=== PATIENT | female | born 1965 | race American Indian/Alaskan Native ===

== ENCOUNTER 2020-03-13 16:41 | Inpatient (IN) | payer OTHER ==
[2020-03-13 17:30] LABS: Basophils % (Auto) 0.4 % (0.0-1.8); Eosinophils % (Auto) 0.1 % (0.0-4.3); Hemoglobin 15.8 gm/dl (10.1-14.3); Lymphocytes # (Auto) 3.3 K/mm3 (1.2-5.4); Lymphocytes % (Auto) 30.2 % (13.4-35.0); Mean Corpuscular HGB Conc 35 % (30-34); Mean Corpuscular Volume 78 fl (79-97); Monocytes # (Auto) 0.6 K/mm3 (0.0-0.8); Monocytes % (Auto) 5.2 % (0.0-7.3); Platelet Count 258 K/mm3 (140-440); Red Blood Count 5.89 M/mm3 (3.65-5.03); Red Cell Distribution Width 12.9 % (13.2-15.2)
[2020-03-13 17:32] LABS: Bacteria,Urine 1+ /HPF (Negative); Bilirubin,Urine NEG (Negative); Blood,Urine SM (Negative); Color,Urine Straw (Yellow); Mucus,Urine FEW /HPF; Protein,Urine <15 mg/dL mg/dL (Negative); Urobilinogen,Urine < 2.0 mg/dL (<2.0)
[2020-03-13 17:35] LABS: Alanine Aminotransferase 21 units/L (7-56); Albumin 4.5 g/dL (3.9-5); BUN/Creatinine Ratio 13; Blood Urea Nitrogen 12 mg/dL (7-17); Calcium 10.9 mg/dL (8.4-10.2); Hemolysis Index 10
[2020-03-13] MEDS ORDERED: INSULIN REGULAR, HUMAN 100 UNIT/ML 3ML VIAL IV ONE (21:06)
[2020-03-13] MEDS ORDERED: SODIUM CHLORIDE 0.9% 1000 ML 1,000 ML IV ONE ×2 (21:06)
[2020-03-13] MEDS ORDERED: ONDANSETRON 4 MG/2 ML INJ IV ONE (21:07)
--- NOTE | 2020-03-13 22:02 | Cat Scan Report ---
CT ABDOMEN PELVIS WITHOUT CONTRAST INDICATION / CLINICAL INFORMATION: Abdominal pain elevated white count. TECHNIQUE: Axial CT images were obtained through the abdomen and pelvis without IV contrast. All CT scans at [facility] location are performed using CT dose reduction for ALARA by means of automated exposure control. COMPARISON: None available. FINDINGS: LOWER CHEST: No significant abnormality. Small hiatal hernia LIVER: No significant abnormality. GALLBLADDER: No significant abnormality. BILE DUCTS: No significant abnormality. PANCREAS: No significant abnormality. SPLEEN: No significant abnormality. ADRENALS: No significant abnormality. RIGHT KIDNEY and URETER: No significant abnormality. LEFT KIDNEY and URETER: No significant abnormality. STOMACH and SMALL BOWEL: No significant abnormality. COLON: No significant abnormality. APPENDIX: No significant abnormality. PERITONEUM: No free fluid. No free air. No fluid collection. LYMPH NODES: No significant adenopathy. AORTA and ARTERIES: Atherosclerotic calcified plaque abdominal aorta. IVC and VEINS: No significant abnormality. URINARY BLADDER: No significant abnormality. REPRODUCTIVE ORGANS: No significant abnormality ADDITIONAL FINDINGS: None. SKELETAL SYSTEM: No significant abnormality. IMPRESSION: 1. No significant abnormality. Signer Name: Nicola Newell MD Signed: 03/13/2020 9:57 PM Workstation Name: [id number]
--- NOTE | 2020-03-14 00:27 | Emergency Department Report ---
ED Abdominal Pain HPI - General Chief Complaint: Abdominal Pain Stated Complaint: VOMITING PUI?: No Time Seen by Provider: 03/13/20 21:06 Source: patient Mode of arrival: Ambulatory Limitations: No Limitations - History of Present Illness Initial Comments: Chief complaint: Stomach pain nausea vomiting blurry vision HPI: This is a 54-year-old Swazi-speaking patient who presents with abdominal pain nausea vomiting for 1 month. She also has experienced blurry vision. She has a lot of flatulence with heartburn. She feels as if her stomach is inflamed. She has poor appetite. She is only able to tolerate fluids. No prev ious history of diabetes. She denies fever patient has cough. No shortness of breath. MD Complaint: abdominal pain -: Gradual, month(s) (1) Location: diffuse Severity: moderate Quality: dull, other (Gas-like pain) Consistency: constant Improves With: nothing Worsens With: eating Associated Symptoms: nausea, vomiting, other (Blurry vision) - Related Data Allergies Allergy/AdvReac Type Severity Reaction Status Date / Time No Known Allergies Allergy Unverified 03/13/20 16:56 ED Review of Systems ROS: Stated complaint: VOMITING Other details as noted in HPI Comment: All other systems reviewed and negative Constitutional: denies: fever, malaise Eyes: vision change Respiratory: denies: cough Cardiovascular: denies: chest pain Gastrointestinal: abdominal pain, nausea, vomiting ED Past Medical Hx - Past Medical History Previous Medical History?: No - Surgical History Past Surgical History?: No ED Physical Exam - General Limitations: No Limitations General appearance: alert, in no apparent distress - Head Head exam: Present: atraumatic, normocephalic - Eye Eye exam: Present: normal appearance - ENT ENT exam: Present: mucous membranes moist - Neck Neck exam: Present: normal inspection, full ROM - Respiratory Respiratory exam: Present: normal lung sounds bilaterally. Absent: respiratory distress, wheezes, rales, rhonchi - Cardiovascular Cardiovascular Exam: Present: regular rate, normal rhythm, normal heart sounds. Absent: systolic murmur, diastolic murmur, rubs, gallop - GI/Abdominal GI/Abdominal exam: Present: soft, normal bowel sounds. Absent: distended, tenderness, guarding, rebound - Extremities Exam Extremities exam: Present: normal inspection - Back Exam Back exam: Present: normal inspection, full ROM - Neurological Exam Neurological exam: Present: alert, oriented X3 - Psychiatric Psychiatric exam: Present: normal affect, normal mood - Skin Skin exam: Present: warm, dry, intact, normal color. Absent: rash ED Course Vital Signs 03/13/20 16:57 Temperature 98.3 F Pulse Rate 107 H Respiratory 20 Rate Blood Pressure 120/80 O2 Sat by Pulse 92 Oximetry ED Medical Decision Making - Lab Data Result diagrams: 03/13/20 17:09 03/13/20 17:09 Laboratory Results - last 24 hr 03/13/20 03/13/20 03/13/20 17:09 17:09 17:09 WBC 11.0 RBC 5.89 H Hgb 15.8 H Hct 46.0 H MCV 78 L MCH 27 L MCHC 35 H RDW 12.9 L Plt Count 258 Lymph % (Auto) 30.2 [place] % (Auto) 5.2 Eos % (Auto) 0.1 Baso % (Auto) 0.4 Lymph # (Auto) 3.3 [place] # (Auto) 0.6 Eos # (Auto) 0.0 Baso # (Auto) 0.0 Seg Neutrophils % 64.1 Seg Neutrophils # 7.0 VBG pH Sodium 123 L Potassium 4.4 Chloride 86.6 L Carbon Dioxide 20 L Anion Gap 21 BUN 12 Creatinine 0.9 Estimated GFR > 60 BUN/Creatinine Ratio 13 Glucose 688 H* Calcium 10.9 H Total Bilirubin 0.50 AST 19 ALT 21 Alkaline Phosphatase 249 H Total Protein 8.4 H Albumin 4.5 Albumin/Globulin Ratio 1.2 Lipase 83 H Urine Color Urine Turbidity Urine pH Ur Specific [place] Urine Protein Urine Glucose (UA) Urine Ketones Urine Blood Urine Nitrite Urine Bilirubin Urine Urobilinogen Ur Leukocyte Esterase Urine WBC (Auto) Urine RBC (Auto) U Epithel Cells (Auto) Urine Bacteria (Auto) Urine Mucus 03/13/20 03/13/20 17:15 21:04 WBC RBC Hgb Hct MCV MCH MCHC RDW Plt Count Lymph % (Auto) [place] % (Auto) Eos % (Auto) Baso % (Auto) Lymph # (Auto) [place] # (Auto) Eos # (Auto) Baso # (Auto) Seg Neutrophils % Seg Neutrophils # VBG pH 7.300 L Sodium Potassium Chloride Carbon Dioxide Anion Gap BUN Creatinine Estimated GFR BUN/Creatinine Ratio Glucose Calcium Total Bilirubin AST ALT Alkaline Phosphatase Total Protein Albumin Albumin/Globulin Ratio Lipase Urine Color Straw Urine Turbidity Clear Urine pH 6.0 Ur Specific [place] 1.031 H Urine Protein <15 mg/dl Urine Glucose (UA) >=500 Urine Ketones Tr Urine Blood Sm Urine Nitrite Neg Urine Bilirubin Neg Urine Urobilinogen < 2.0 Ur Leukocyte Esterase Mod Urine WBC (Auto) 4.0 Urine RBC (Auto) 6.0 U Epithel Cells (Auto) 3.0 Urine Bacteria (Auto) 1+ Urine Mucus Few - Radiology Data Radiology results: report reviewed CT abdomen pelvis: No acute inflammatory changes or obstructive process according to radiology impression. - Medical Decision Making This is a 54-year-old female without previous significant past medical history who presents with new onset diabetes and diabetic ketoacidosis. I suspect her symptoms of nausea vomiting poor appetite and blurry vision represent uncontrolled diabetes in ketoacidosis. Patient is admitted to CCU for insulin infusion therapy. Corrected sodium level 137 Critical care attestation.: If time is entered above; I have spent that time in minutes in the direct care of this critically ill patient, excluding procedure time. ED Disposition Clinical Impression: Diabetic ketoacidosis, New onset type 2 diabetes mellitus Disposition: OP ADMIT IP TO THIS HOSP Is pt being admited?: Yes Does the pt Need Aspirin: No Condition: Fair Instructions: Diabetic Ketoacidosis (ED)
[2020-03-14] MEDS ORDERED: PANTOPRAZOLE 40 MG INJ IV ONE ×2 (00:32→02:18)
[2020-03-14] MEDS ORDERED: DEXTROSE 50% IN WATER (25GM) 50 ML SYRINGE IV PRN (00:37)
[2020-03-14] MEDS ORDERED: MORPHINE 2 MG/1 ML INJ IV PRN (00:37)
[2020-03-14] MEDS ORDERED: SODIUM CHLORIDE 0.9% 1000 ML 1,000 ML IV SCH (00:45)
--- NOTE | 2020-03-14 00:52 | History and Physical Report ---
History of Present Illness Date of examination: 03/14/20 Date of admission: 03/14/2020 Chief complaint: Nausea and Vomiting Abdominal pain Blurry Vision History of present illness: Patient is a 54-year-old female presenting to the emergency room today complaining of nausea and vomiting with some abdominal pain which has been ongoing on and off for about 1 month. She has also experienced some blurry vision. Patient denies any fever or chills, no chest pain or shortness of breath, no cough, no headache or dizziness. She denies any sick contacts and no recent travel. She denies any contact with anyone with COVID-19. She has been having decreased appetite. Abdominal pain is more in the epigastric region. Work-up in the emergency room today reveals blood sugar in the 600s, elevated anion gap. Patient found to be in DKA She has been started on insulin drip and IV fluid. Past History Past Medical History: No medical history Past Surgical History: No surgical history Social history: no significant social history Family history: no significant family history Medications and Allergies Allergies Allergy/AdvReac Type Severity Reaction Status Date / Time No Known Allergies Allergy Unverified 03/13/20 16:56 Home Medications Medication Instructions Recorded Confirmed Last Taken Type No Known Home Medications [No 03/14/20 03/14/20 Unknown History Reported Home Medications] Active Meds: Active Medications Dextrose (D50w (25gm) Syringe) 0 ml IV Q30MIN PRN; Protocol PRN Reason: Hypoglycemia Enoxaparin Sodium (Enoxaparin) 40 mg SUB-Q QDAY@2200 LUIS ENRIQUE; Protocol Insulin Human Regular 100 (units/ Sodium Chloride) 100 mls @ 8 mls/hr IV TITR LUIS ENRIQUE; Protocol Insulin Human Regular 100 (units/ Sodium Chloride) 100 mls @ 1 mls/hr IV TITR LUIS ENRIQUE; Protocol Sodium Chloride (Nacl 0.9% 1000 Ml) 1,000 mls @ 150 mls/hr IV DIRECT LUIS ENRIQUE Potassium Chloride/Dextrose/Sod Cl (D5w/0.45% Nacl/Kcl 20 Meq) 20 meq in 1,000 mls @ 125 mls/hr IV DIRECT LUIS ENRIQUE Morphine Sulfate (Morphine) 2 mg IV Q4H PRN PRN Reason: Pain, Moderate (4-6) Sodium Chloride (Sodium Chloride Flush Syringe 10 Ml) 10 ml IV BID LUIS ENRIQUE Sodium Chloride (Sodium Chloride Flush Syringe 10 Ml) 10 ml IV PRN PRN PRN Reason: LINE FLUSH Review of Systems Constitutional: no fever, no chills Eyes: bilateral: blurred vision Ears, nose, mouth and throat: no nasal congestion, no sore throat Cardiovascular: no chest pain, no palpitations Respiratory: no cough, no shortness of breath Gastrointestinal: abdominal pain, nausea, vomiting, no diarrhea Genitourinary Female: no pelvic pain, no flank pain, no dysuria, no hematuria Musculoskeletal: no neck pain, no low back pain Integumentary: no rash, no pruritis Neurological: no headaches, no confusion Psychiatric: no anxiety, no depression Endocrine: no polyphagia, no polydipsia, no polyuria Exam - Constitutional Vitals: Temp Pulse Resp BP Pulse Ox 98.3 F 107 H 20 120/80 92 03/13/20 16:57 03/13/20 16:57 03/13/20 16:57 03/13/20 16:57 03/13/20 16:57 General appearance: Present: no acute distress, well-nourished - EENT Eyes: Present: PERRL, EOM intact. Absent: scleral icterus ENT: hearing intact, clear oral mucosa, dentition normal - Neck Neck: Present: supple, normal ROM - Respiratory Respiratory effort: normal Respiratory: bilateral: CTA - Cardiovascular Rhythm: regular Heart Sounds: Present: S1 & S2. Absent: gallop, systolic murmur, diastolic murmur, rub - Extremities Extremities: no ischemia, pulses intact, pulses symmetrical, No edema, Full ROM Peripheral Pulses: within normal limits - Abdominal General gastrointestinal: Present: soft, non-tender, non-distended, normal bowel sounds. Absent: mass - Integumentary Integumentary: Present: clear, warm, dry - Musculoskeletal Musculoskeletal: strength equal bilaterally - Psychiatric Psychiatric: appropriate mood/affect, intact judgment & insight, memory intact, cooperative - Neurologic Neurologic: CNII-XII intact, no focal deficits, moves all extremities Results - Labs CBC & Chem 7: 03/13/20 17:09 03/14/20 04:10 Labs: Abnormal lab results 03/13/20 03/13/20 03/13/20 Range/Units 17:09 17:09 17:09 RBC 5.89 H (3.65-5.03) M/mm3 Hgb 15.8 H (10.1-14.3) gm/dl Hct 46.0 H (30.3-42.9) % MCV 78 L (79-97) fl MCH 27 L (28-32) pg MCHC 35 H (30-34) % RDW 12.9 L (13.2-15.2) % VBG pH (7.320-7.420) Sodium 123 L (137-145) mmol/L Chloride 86.6 L (98-107) mmol/L Carbon Dioxide 20 L (22-30) mmol/L Glucose 688 H* (65-100) mg/dL Calcium 10.9 H (8.4-10.2) mg/dL Alkaline Phosphatase 249 H (35-129) units/L Total Protein 8.4 H (6.3-8.2) g/dL Lipase 83 H (13-60) units/L Ur Specific [place] (1.003-1.030) 03/13/20 03/13/20 Range/Units 17:15 21:04 RBC (3.65-5.03) M/mm3 Hgb (10.1-14.3) gm/dl Hct (30.3-42.9) % MCV (79-97) fl MCH (28-32) pg MCHC (30-34) % RDW (13.2-15.2) % VBG pH 7.300 L (7.320-7.420) Sodium (137-145) mmol/L Chloride (98-107) mmol/L Carbon Dioxide (22-30) mmol/L Glucose (65-100) mg/dL Calcium (8.4-10.2) mg/dL Alkaline Phosphatase (35-129) units/L Total Protein (6.3-8.2) g/dL Lipase (13-60) units/L Ur Specific [place] 1.031 H (1.003-1.030) Assessment and Plan - Patient Problems (1) Diabetic ketoacidosis Current Visit: Yes Status: Acute Plan to address problem: Patient placed on IV fluid and insulin drip. We will monitor blood glucose according to protocol. (2) New onset type 2 diabetes mellitus Current Visit: Yes Status: Acute Plan to address problem: We will check hemoglobin A1c. We will also place a dietary consult for evaluation prior to discharge. (3) DVT prophylaxis Current Visit: Yes Status: Acute Plan to address problem: Patient placed on subcutaneous Lovenox. (4) Full code status Current Visit: Yes Status: Acute
[2020-03-14] MEDS ORDERED: D5W/0.45% NACL/KCL 20 MEQ 20 MEQ/1,000 ML BAG IV SCH (01:00)
[2020-03-14] MEDS ORDERED: INSULIN REGULAR, HUMAN 100 UNITS in SODIUM CHLORIDE 0.9% 99 ML IV SCH ×2 (01:00)
[2020-03-14 01:27] LABS: Blood Urea Nitrogen 13 mg/dL (7-17); Calcium 10.9 mg/dL (8.4-10.2); Hemolysis Index 14
[2020-03-14 01:33] LABS: BUN/Creatinine Ratio 19
[2020-03-14 05:43] LABS: Blood Urea Nitrogen 11 mg/dL (7-17); Calcium 9.9 mg/dL (8.4-10.2); Hemolysis Index 32
[2020-03-14 06:06] LABS: BUN/Creatinine Ratio 18
[2020-03-14 06:41] LABS: Blood Urea Nitrogen 11 mg/dL (7-17); Calcium 9.8 mg/dL (8.4-10.2); Hemolysis Index 10
[2020-03-14 06:53] LABS: BUN/Creatinine Ratio 18
[2020-03-14 07:51] LABS: Blood Urea Nitrogen 10 mg/dL (7-17); Calcium 9.8 mg/dL (8.4-10.2); Hemolysis Index 20
[2020-03-14 07:56] LABS: BUN/Creatinine Ratio 20
[2020-03-14] MEDS ORDERED: POTASSIUM CHLORIDE 10 MEQ 10 MEQ/100 ML BAG IV SCH (08:00)
--- NOTE | 2020-03-14 08:03 | Progress Note ---
Assessment and Plan Assessment and plan: --Diabetic ketoacidosis Current Visit: Yes Status: Acute Plan to address problem: Patient placed on DKA pathway IV fluid and insulin drip. Want her electrolytes and just Patient's anion gap closed Blood sugars reasonable level If patient does not have nausea vomiting Start a new diet, transition to long-acting insulin Check hemoglobin A1c --Hypokalemia; Current Visit: Yes Status: Acute . Plan to address problem: Replenish with KCl IV Check magnesium Closely monitor electrolytes --Hyponatremia; pseudohyponatremia due to hyperglycemia Current Visit: Yes Status: Acute . Plan to address problem: As the blood sugars improved sodium levels will improve Closely monitor electrolytes --New onset type 2 diabetes mellitus Current Visit: Yes Status: Acute Plan to address problem: Check hemoglobin A1c. Diabetic education, nutrition education --Ongoing tobacco use; Current Visit: Yes Status: Acute. Plan to address problem: Smoking cessation counseling Nicotine patch as needed -- DVT prophylaxis Current Visit: Yes Status: Acute Plan to address problem: Patient placed on subcutaneous Lovenox. -- Full code status Current Visit: Yes Status: Acute We will closely monitor the patient and adjust management as needed May transition to long-acting insulin And may move the patient out of ICU if stable in a few hours Plan of care reviewed with the patient and her nurse I will also discussed with burrer hand and case management History Interval history: I have seen and examined the patient at the bedside in ICU this morning Patient's chart medications tests and reports reviewed Patient was admitted with DKA on insulin drip Patient blood sugars reasonable level A gap closed, acidosis improved Patient has no nausea vomiting Alert awake oriented Vital signs noted Hospitalist Physical - Constitutional Vitals: Temp Pulse Resp BP Pulse Ox 98.2 F 96 H 18 124/82 96 03/14/20 01:44 03/14/20 01:44 03/14/20 01:44 03/14/20 01:44 03/14/20 01:44 General appearance: Present: no acute distress, well-nourished - EENT Eyes: Present: PERRL, EOM intact - Neck Neck: Present: supple, normal ROM - Respiratory Respiratory effort: normal Respiratory: bilateral: diminished, negative: rales, rhonchi, wheezing - Cardiovascular Rhythm: regular Heart Sounds: Present: S1 & S2 - Extremities Extremities: no ischemia, No edema - Abdominal General gastrointestinal: soft, non-tender, non-distended, normal bowel sounds - Integumentary Integumentary: Present: clear, warm - Psychiatric Psychiatric: appropriate mood/affect Results - Labs CBC & Chem 7: 03/13/20 17:09 03/14/20 13:24 Labs: Laboratory Last Values WBC 11.0 K/mm3 (4.5-11.0) 03/13/20 17:09 RBC 5.89 M/mm3 (3.65-5.03) H 03/13/20 17:09 Hgb 15.8 gm/dl (10.1-14.3) H 03/13/20 17:09 Hct 46.0 % (30.3-42.9) H 03/13/20 17:09 MCV 78 fl (79-97) L 03/13/20 17:09 MCH 27 pg (28-32) L 03/13/20 17:09 MCHC 35 % (30-34) H 03/13/20 17:09 RDW 12.9 % (13.2-15.2) L 03/13/20 17:09 Plt Count 258 K/mm3 (140-440) 03/13/20 17:09 Lymph % (Auto) 30.2 % (13.4-35.0) 03/13/20 17:09 [place] % (Auto) 5.2 % (0.0-7.3) 03/13/20 17:09 Eos % (Auto) 0.1 % (0.0-4.3) 03/13/20 17:09 Baso % (Auto) 0.4 % (0.0-1.8) 03/13/20 17:09 Lymph # (Auto) 3.3 K/mm3 (1.2-5.4) 03/13/20 17:09 [place] # (Auto) 0.6 K/mm3 (0.0-0.8) 03/13/20 17:09 Eos # (Auto) 0.0 K/mm3 (0.0-0.4) 03/13/20 17:09 Baso # (Auto) 0.0 K/mm3 (0.0-0.1) 03/13/20 17:09 Seg Neutrophils % 64.1 % (40.0-70.0) 03/13/20 17:09 Seg Neutrophils # 7.0 K/mm3 (1.8-7.7) 03/13/20 17:09 VBG pH 7.300 (7.320-7.420) L 03/13/20 21:04 Sodium 133 mmol/L (137-145) L 03/14/20 06:28 Potassium 3.4 mmol/L (3.6-5.0) L 03/14/20 06:28 Chloride 100.2 mmol/L (98-107) 03/14/20 06:28 Carbon Dioxide 20 mmol/L (22-30) L 03/14/20 06:28 Anion Gap 16 mmol/L 03/14/20 06:28 BUN 10 mg/dL (7-17) 03/14/20 06:28 Creatinine 0.5 mg/dL (0.6-1.2) L 03/14/20 06:28 Estimated GFR > 60 ml/min 03/14/20 06:28 BUN/Creatinine Ratio 20 % 03/14/20 06:28 Glucose 191 mg/dL (65-100) H 03/14/20 06:28 POC Glucose 176 (70-105) H 03/14/20 07:04 Calcium 9.8 mg/dL (8.4-10.2) 03/14/20 06:28 Phosphorus 3.90 mg/dL (2.5-4.5) 03/14/20 00:43 Magnesium 2.20 mg/dL (1.7-2.3) 03/14/20 00:43 Total Bilirubin 0.50 mg/dL (0.1-1.2) 03/13/20 17:09 AST 19 units/L (5-40) 03/13/20 17:09 ALT 21 units/L (7-56) 03/13/20 17:09 Alkaline Phosphatase 249 units/L (35-129) H 03/13/20 17:09 Total Protein 8.4 g/dL (6.3-8.2) H 03/13/20 17:09 Albumin 4.5 g/dL (3.9-5) 03/13/20 17:09 Albumin/Globulin Ratio 1.2 % 03/13/20 17:09 Lipase 83 units/L (13-60) H 03/13/20 17:09 Urine Color Straw (Yellow) 03/13/20 17:15 Urine Turbidity Clear (Clear) 03/13/20 17:15 Urine pH 6.0 (5.0-7.0) 03/13/20 17:15 Ur Specific [place] 1.031 (1.003-1.030) H 03/13/20 17:15 Urine Protein <15 mg/dl mg/dL (Negative) 03/13/20 17:15 Urine Glucose (UA) >=500 mg/dL (Negative) 03/13/20 17:15 Urine Ketones Tr mg/dL (Negative) 03/13/20 17:15 Urine Blood Sm (Negative) 03/13/20 17:15 Urine Nitrite Neg (Negative) 03/13/20 17:15 Urine Bilirubin Neg (Negative) 03/13/20 17:15 Urine Urobilinogen < 2.0 mg/dL (<2.0) 03/13/20 17:15 Ur Leukocyte Esterase Mod (Negative) 03/13/20 17:15 Urine WBC (Auto) 4.0 /HPF (0.0-6.0) 03/13/20 17:15 Urine RBC (Auto) 6.0 /HPF (0.0-6.0) 03/13/20 17:15 U Epithel Cells (Auto) 3.0 /HPF (0-13.0) 03/13/20 17:15 Urine Bacteria (Auto) 1+ /HPF (Negative) 03/13/20 17:15 Urine Mucus Few /HPF 03/13/20 17:15 [place]/IV: Voiding Method Bedpan IV Catheter Type [Right Hand] Peripheral IV IV Catheter Type [Left Hand] INT / Saline Lock Active Medications - Current Medications Current Medications: Generic Name Dose Route Start Last Admin Trade Name Freq PRN Reason Stop Dose Admin Dextrose 0 ml 03/14/20 00:37 D50w (25gm) Syringe IV Q30MIN PRN Hypoglycemia Protocol Enoxaparin Sodium 40 mg 03/14/20 22:00 Enoxaparin SUB-Q QDAY@2200 LUIS ENRIQUE Protocol Insulin Human Regular 100 100 mls @ 1 mls/hr 03/14/20 01:00 03/14/20 06:57 units/ Sodium Chloride IV 2.5 units/hr TITR LUIS ENRIQUE 2.5 mls/hr Titration Protocol 1 UNITS/HR Sodium Chloride 1,000 mls @ 150 mls/hr 03/14/20 00:45 03/14/20 04:15 Nacl 0.9% 1000 Ml IV 0 mls/hr DIRECT LUIS ENRIQUE Infusion Potassium Chloride/Dextrose/Sod Cl 20 meq in 1,000 mls @ 125 mls/hr 03/14/20 01:00 03/14/20 04:17 D5w/0.45% Nacl/Kcl 20 Meq IV 125 mls/hr DIRECT LUIS ENRIQUE Administration Potassium Chloride 10 meq in 100 mls @ 100 mls/hr 03/14/20 08:00 Kcl 10meq/100ml IV 03/14/20 11:59 Q1H LUIS ENRIQUE Morphine Sulfate 2 mg 03/14/20 00:37 Morphine IV Q4H PRN Pain, Moderate (4-6) Sodium Chloride 10 ml 03/14/20 10:00 Sodium Chloride Flush Syringe 10 Ml IV BID LUIS ENRIQUE Sodium Chloride 10 ml 03/14/20 00:37 Sodium Chloride Flush Syringe 10 Ml IV PRN PRN LINE FLUSH
--- NOTE | 2020-03-14 08:47 | Consultation ---
History of Present Illness Consult date: 03/14/20 Requesting physician: CARLOS MARIA Reason for consult: other (DKA new onset) History of present illness: Patient is a 54-year-old female presenting to the emergency room today complaining of nausea and vomiting with some abdominal pain which has been ongoing on and off for about 1 month. She has also experienced some blurry vision. Patient denies any fever or chills, no chest pain or shortness of breath, no cough, no headache or dizziness. She denies any sick contacts and no recent travel. She denies any contact with anyone with COVID-19. She has been having decreased appetite. Abdominal pain is more in the epigastric region. Work-up in the emergency room today reveals blood sugar in the 600s, elevated anion gap. Patient found to be in DKA She has been started on insulin drip and IV fluid. I was consulted for critical care management. Patient seen and examined. Vitals, labs, medications, chart reviewed. Language barrier She is off the insulin infusion, she had breakfast. Her abdominal pain is much better, she denies any nausea or vomiting ROS: Stated complaint: VOMITING Other details as noted in HPI Constitutional: denies: fever, malaise Eyes: vision change Respiratory: denies: cough Cardiovascular: denies: chest pain Gastrointestinal: abdominal pain, nausea, vomiting Past History Past Medical History: No medical history Past Surgical History: No surgical history Social history: no significant social history Family history: no significant family history Medications and Allergies Allergies Allergy/AdvReac Type Severity Reaction Status Date / Time No Known Allergies Allergy Unverified 03/13/20 16:56 Home Medications Medication Instructions Recorded Confirmed Last Taken Type No Known Home Medications [No 03/14/20 03/14/20 Unknown History Reported Home Medications] Active Meds: Active Medications Dextrose (D50w (25gm) Syringe) 0 ml IV Q30MIN PRN; Protocol PRN Reason: Hypoglycemia Enoxaparin Sodium (Enoxaparin) 40 mg SUB-Q QDAY@2200 LUIS ENRIQUE; Protocol Sodium Chloride (Nacl 0.9% 1000 Ml) 1,000 mls @ 150 mls/hr IV DIRECT LUIS ENRIQUE Last Infusion: 03/14/20 04:15 Dose: 0 mls/hr Documented by: Potassium Chloride (Kcl 10meq/100ml) 10 meq in 100 mls @ 100 mls/hr IV Q1H LUIS ENRIQUE Stop: 03/14/20 11:59 Insulin Human Isoph/Insulin Regular (Humulin 70/30) 6 unit SUB-Q BIDDIAB LUIS ENRIQUE Insulin Human Lispro (Humalog) 0 unit SUB-Q ACHS LUIS ENRIQUE; Protocol Morphine Sulfate (Morphine) 2 mg IV Q4H PRN PRN Reason: Pain, Moderate (4-6) Nicotine (Habitrol) 14 mg TD QDAY LUIS ENRIQUE Sodium Chloride (Sodium Chloride Flush Syringe 10 Ml) 10 ml IV BID LUIS ENRIQUE Sodium Chloride (Sodium Chloride Flush Syringe 10 Ml) 10 ml IV PRN PRN PRN Reason: LINE FLUSH Physical Examination Vital signs: Vital Signs Temp Pulse Resp BP Pulse Ox 98.3 F 107 H 20 120/80 92 03/13/20 16:57 03/13/20 16:57 03/13/20 16:57 03/13/20 16:57 03/13/20 16:57 General appearance: Present: no acute distress, well-nourished - EENT Eyes: Present: PERRL, EOM intact - Neck Neck: Present: supple, normal ROM - Respiratory Respiratory effort: normal Respiratory: bilateral: diminished, negative: rales, rhonchi, wheezing - Cardiovascular Rhythm: regular Heart Sounds: Present: S1 & S2 - Extremities Extremities: no ischemia, No edema - Abdominal General gastrointestinal: soft, non-tender, non-distended, normal bowel sounds - Integumentary Integumentary: Present: clear, warm - Psychiatric Psychiatric: appropriate mood/affect Results - Laboratory Findings CBC and BMP: 03/13/20 17:09 03/14/20 06:28 Abnormal lab findings: Abnormal Labs 03/13/20 03/13/20 03/13/20 17:09 17:09 17:09 RBC 5.89 H Hgb 15.8 H Hct 46.0 H MCV 78 L MCH 27 L MCHC 35 H RDW 12.9 L VBG pH Sodium 123 L Potassium Chloride 86.6 L Carbon Dioxide 20 L Creatinine Glucose 688 H* POC Glucose Calcium 10.9 H Alkaline Phosphatase 249 H Total Protein 8.4 H Lipase 83 H Ur Specific [place] 03/13/20 03/13/20 03/14/20 17:15 21:04 00:54 RBC Hgb Hct MCV MCH MCHC RDW VBG pH 7.300 L Sodium 127 L Potassium Chloride 90.3 L Carbon Dioxide Creatinine Glucose 461 H POC Glucose Calcium 10.9 H Alkaline Phosphatase Total Protein Lipase Ur Specific [place] 1.031 H 03/14/20 03/14/20 03/14/20 03:10 04:10 04:28 RBC Hgb Hct MCV MCH MCHC RDW VBG pH Sodium 136 L D Potassium 3.4 L Chloride Carbon Dioxide 21 L Creatinine Glucose 268 H POC Glucose 319 H 237 H Calcium Alkaline Phosphatase Total Protein Lipase Ur Specific [place] 03/14/20 03/14/20 03/14/20 05:25 05:48 06:12 RBC Hgb Hct MCV MCH MCHC RDW VBG pH Sodium Potassium 3.2 L Chloride Carbon Dioxide Creatinine Glucose 232 H POC Glucose 229 H 199 H Calcium Alkaline Phosphatase Total Protein Lipase Ur Specific [place] 03/14/20 03/14/20 03/14/20 06:28 07:04 08:17 RBC Hgb Hct MCV MCH MCHC RDW VBG pH Sodium 133 L Potassium 3.4 L Chloride Carbon Dioxide 20 L Creatinine 0.5 L Glucose 191 H POC Glucose 176 H 185 H Calcium Alkaline Phosphatase Total Protein Lipase Ur Specific [place] Assessment and Plan -Diabetic ketoacidosis Current Visit: Yes Status: Acute Plan to address problem: Patient placed on DKA pathway IV fluid and insulin drip. Want her electrolytes and just Patient's anion gap closed Blood sugars reasonable level If patient does not have nausea vomiting Start a new diet, transition to long-acting insulin Check hemoglobin A1c --Hypokalemia; Current Visit: Yes Status: Acute . Plan to address problem: Replenish with KCl IV Check magnesium Closely monitor electrolytes --Hyponatremia; pseudohyponatremia due to hyperglycemia Current Visit: Yes Status: Acute . Plan to address problem: As the blood sugars improved sodium levels will improve Closely monitor electrolytes --New onset type 2 diabetes mellitus Current Visit: Yes Status: Acute Plan to address problem: Check hemoglobin A1c. Diabetic education, nutrition education --Ongoing tobacco use; Current Visit: Yes Status: Acute. Plan to address problem: Smoking cessation counseling Nicotine patch as needed -- DVT prophylaxis Current Visit: Yes Status: Acute Plan to address problem: Patient placed on subcutaneous Lovenox. -- Full code status Stable to transfer out of the ICU Continue weight based insulin, diabetic education
[2020-03-14] MEDS ORDERED: INSULIN NPH/REGULAR 70/30 INJ SUB-Q SCH ×2 (09:00→17:00)
[2020-03-14] MEDS ORDERED: ACETAMINOPHEN 325 MG TAB PO PRN (09:28)
[2020-03-14] MEDS: NICOTINE 14 MG/24 HR PATCH TD SCH (09:38)
[2020-03-14] MEDS ORDERED: POTASSIUM CHLORIDE ER 20 MEQ TAB PO ONE (10:00)
[2020-03-14] MEDS: INSULIN LISPRO 100 UNIT/ML VIAL 3 mL SUB-Q SCH ×3 (12:52→23:02)
[2020-03-14 14:31] LABS: Blood Urea Nitrogen 11 mg/dL (7-17); Calcium 9.6 mg/dL (8.4-10.2); Hemolysis Index 10
[2020-03-14 14:32] LABS: BUN/Creatinine Ratio 18
[2020-03-14 19:13] LABS: BUN/Creatinine Ratio 12; Blood Urea Nitrogen 11 mg/dL (7-17); Calcium 9.9 mg/dL (8.4-10.2); Hemolysis Index 25
[2020-03-14] MEDS: ENOXAPARIN 40 MG/0.4 ML INJ SUB-Q SCH (22:55)
[2020-03-15 01:29] LABS: BUN/Creatinine Ratio 14; Blood Urea Nitrogen 11 mg/dL (7-17); Calcium 9.6 mg/dL (8.4-10.2); Hemolysis Index 9
[2020-03-15 06:23] LABS: Basophils # (Auto) 0.1 K/mm3 (0.0-0.1); Basophils % (Auto) 0.8 % (0.0-1.8); Eosinophils % (Auto) 0.4 % (0.0-4.3); Hematocrit 39.2 % (30.3-42.9); Hemoglobin 13.7 gm/dl (10.1-14.3); Lymphocytes # (Auto) 3.9 K/mm3 (1.2-5.4); Mean Corpuscular HGB Conc 35 % (30-34); Mean Corpuscular Volume 77 fl (79-97); Monocytes # (Auto) 0.5 K/mm3 (0.0-0.8); Monocytes % (Auto) 5.5 % (0.0-7.3); Platelet Count 219 K/mm3 (140-440); Red Blood Count 5.08 M/mm3 (3.65-5.03); Red Cell Distribution Width 13.1 % (13.2-15.2)
[2020-03-15 06:30] LABS: INR 0.97 (0.87-1.13)
[2020-03-15 06:34] LABS: Blood Urea Nitrogen 13 mg/dL (7-17); Calcium 9.8 mg/dL (8.4-10.2); Hemolysis Index 5
[2020-03-15 06:35] LABS: BUN/Creatinine Ratio 19
--- NOTE | 2020-03-15 08:29 | Progress Note ---
Assessment and Plan Assessment and plan: --New onset type II diabetes mellitus; uncontrolled Presented with acute diabetic ketoacidosis Now on long-acting insulin Novolin 70/30 Increase 70/30 insulin to 30 units s/c twice a day Accu-Chek sliding scale coverage ADA diet Diabetic education diabetic diet education Check A1c 12.3 --Diabetic ketoacidosis; resolved Current Visit: Yes Status: Acute Plan to address problem: Patient was on on DKA pathway/insulin drip Currently on long-acting insulin ADA diet --Hypokalemia; resolved Current Visit: Yes Status: Acute . Plan to address problem: Closely monitor electrolytes --Hyponatremia; pseudohyponatremia due to hyperglycemia Current Visit: Yes Status: Acute . Plan to address problem: As the blood sugars improved sodium levels will improve Closely monitor electrolytes --Ongoing tobacco use; Current Visit: Yes Status: Acute. Plan to address problem: Smoking cessation counseling Nicotine patch as needed -- DVT prophylaxis Current Visit: Yes Status: Acute Plan to address problem: Patient placed on subcutaneous Lovenox. -- Full code status Current Visit: Yes Status: Acute Closely monitor the patient and adjust management as needed Plan of care reviewed with the patient and her nurse History Interval history: I have seen and examined the patient at the bedside today Patient's chart and medications reviewed Patient feels slightly better, blood sugars still remain uncontrolled Alert and awake responding appropriately Vital signs noted Hospitalist Physical - Constitutional Vitals: Temp Pulse Resp BP Pulse Ox 98.0 F 74 18 92/36 91 03/15/20 04:58 03/15/20 04:58 03/15/20 04:58 03/15/20 04:58 03/15/20 04:58 General appearance: Present: no acute distress, well-nourished - EENT Eyes: Present: PERRL, EOM intact - Neck Neck: Present: supple, normal ROM - Respiratory Respiratory effort: normal Respiratory: bilateral: diminished, negative: rales, rhonchi, wheezing - Cardiovascular Rhythm: regular Heart Sounds: Present: S1 & S2 - Extremities Extremities: no ischemia, No edema - Abdominal General gastrointestinal: soft, non-tender, non-distended, normal bowel sounds - Integumentary Integumentary: Present: clear, warm - Psychiatric Psychiatric: appropriate mood/affect, cooperative - Neurologic Neurologic: moves all extremities Results - Labs CBC & Chem 7: 03/15/20 05:52 03/15/20 05:52 Labs: Laboratory Last Values WBC 9.5 K/mm3 (4.5-11.0) 03/15/20 05:52 RBC 5.08 M/mm3 (3.65-5.03) H 03/15/20 05:52 Hgb 13.7 gm/dl (10.1-14.3) 03/15/20 05:52 Hct 39.2 % (30.3-42.9) D 03/15/20 05:52 MCV 77 fl (79-97) L 03/15/20 05:52 MCH 27 pg (28-32) L 03/15/20 05:52 MCHC 35 % (30-34) H 03/15/20 05:52 RDW 13.1 % (13.2-15.2) L 03/15/20 05:52 Plt Count 219 K/mm3 (140-440) 03/15/20 05:52 Lymph % (Auto) 41.0 % (13.4-35.0) H 03/15/20 05:52 [place] % (Auto) 5.5 % (0.0-7.3) 03/15/20 05:52 Eos % (Auto) 0.4 % (0.0-4.3) 03/15/20 05:52 Baso % (Auto) 0.8 % (0.0-1.8) 03/15/20 05:52 Lymph # (Auto) 3.9 K/mm3 (1.2-5.4) 03/15/20 05:52 [place] # (Auto) 0.5 K/mm3 (0.0-0.8) 03/15/20 05:52 Eos # (Auto) 0.0 K/mm3 (0.0-0.4) 03/15/20 05:52 Baso # (Auto) 0.1 K/mm3 (0.0-0.1) 03/15/20 05:52 Seg Neutrophils % 52.3 % (40.0-70.0) 03/15/20 05:52 Seg Neutrophils # 5.0 K/mm3 (1.8-7.7) 03/15/20 05:52 PT 13.1 Sec. (12.2-14.9) 03/15/20 05:52 INR 0.97 (0.87-1.13) 03/15/20 05:52 VBG pH 7.300 (7.320-7.420) L 03/13/20 21:04 Sodium 134 mmol/L (137-145) L 03/15/20 05:52 Potassium 3.8 mmol/L (3.6-5.0) 03/15/20 05:52 Chloride 99.3 mmol/L (98-107) 03/15/20 05:52 Carbon Dioxide 21 mmol/L (22-30) L 03/15/20 05:52 Anion Gap 18 mmol/L 03/15/20 05:52 BUN 13 mg/dL (7-17) 03/15/20 05:52 Creatinine 0.7 mg/dL (0.6-1.2) 03/15/20 05:52 Estimated GFR > 60 ml/min 03/15/20 05:52 BUN/Creatinine Ratio 19 % 03/15/20 05:52 Glucose 382 mg/dL (65-100) H 03/15/20 05:52 POC Glucose 352 (70-105) H 03/15/20 08:19 Calcium 9.8 mg/dL (8.4-10.2) 03/15/20 05:52 Phosphorus 3.90 mg/dL (2.5-4.5) 03/14/20 00:43 Magnesium 2.20 mg/dL (1.7-2.3) 03/14/20 00:43 Total Bilirubin 0.50 mg/dL (0.1-1.2) 03/13/20 17:09 AST 19 units/L (5-40) 03/13/20 17:09 ALT 21 units/L (7-56) 03/13/20 17:09 Alkaline Phosphatase 249 units/L (35-129) H 03/13/20 17:09 Total Protein 8.4 g/dL (6.3-8.2) H 03/13/20 17:09 Albumin 4.5 g/dL (3.9-5) 03/13/20 17:09 Albumin/Globulin Ratio 1.2 % 03/13/20 17:09 Lipase 83 units/L (13-60) H 03/13/20 17:09 Urine Color Straw (Yellow) 03/13/20 17:15 Urine Turbidity Clear (Clear) 03/13/20 17:15 Urine pH 6.0 (5.0-7.0) 03/13/20 17:15 Ur Specific [place] 1.031 (1.003-1.030) H 03/13/20 17:15 Urine Protein <15 mg/dl mg/dL (Negative) 03/13/20 17:15 Urine Glucose (UA) >=500 mg/dL (Negative) 03/13/20 17:15 Urine Ketones Tr mg/dL (Negative) 03/13/20 17:15 Urine Blood Sm (Negative) 03/13/20 17:15 Urine Nitrite Neg (Negative) 03/13/20 17:15 Urine Bilirubin Neg (Negative) 03/13/20 17:15 Urine Urobilinogen < 2.0 mg/dL (<2.0) 03/13/20 17:15 Ur Leukocyte Esterase Mod (Negative) 03/13/20 17:15 Urine WBC (Auto) 4.0 /HPF (0.0-6.0) 03/13/20 17:15 Urine RBC (Auto) 6.0 /HPF (0.0-6.0) 03/13/20 17:15 U Epithel Cells (Auto) 3.0 /HPF (0-13.0) 03/13/20 17:15 Urine Bacteria (Auto) 1+ /HPF (Negative) 03/13/20 17:15 Urine Mucus Few /HPF 03/13/20 17:15 Grimaldo/IV: Voiding Method Bedpan IV Catheter Type [Right Hand] Peripheral IV IV Catheter Type [Left Hand] INT / Saline Lock Active Medications - Current Medications Current Medications: Generic Name Dose Route Start Last Admin Trade Name Freq PRN Reason Stop Dose Admin Acetaminophen 650 mg 03/14/20 09:28 03/14/20 09:39 Tylenol PO 650 mg Q4H PRN Administration Pain, Mild (1-3) Dextrose 0 ml 03/14/20 00:37 D50w (25gm) Syringe IV Q30MIN PRN Hypoglycemia Protocol Enoxaparin Sodium 40 mg 03/14/20 22:00 03/14/20 22:55 Enoxaparin SUB-Q 40 mg QDAY@2200 LUIS ENRIQUE Administration Protocol Insulin Human Isoph/Insulin Regular 20 unit 03/15/20 08:22 Humulin 70/30 SUB-Q BIDDIAB LUIS ENRIQUE Insulin Human Lispro 0 unit 03/14/20 11:30 03/14/20 23:02 Humalog SUB-Q 4 unit ACHS LUIS ENRIQUE Administration Protocol Morphine Sulfate 2 mg 03/14/20 00:37 Morphine IV Q4H PRN Pain, Moderate (4-6) Nicotine 14 mg 03/14/20 10:00 03/14/20 09:38 Habitrol TD 14 mg QDAY LUIS ENRIQUE Administration Sodium Chloride 10 ml 03/14/20 10:00 03/14/20 22:58 Sodium Chloride Flush Syringe 10 Ml IV 10 ml BID LUIS ENRIQUE Administration Sodium Chloride 10 ml 03/14/20 00:37 Sodium Chloride Flush Syringe 10 Ml IV PRN PRN LINE FLUSH Nutrition/Malnutrition Assess - Dietary Evaluation Nutrition/Malnutrition Findings: Nutrition Notes Start: 03/14/20 08:50 Freq: Status: Active Protocol: Document 03/14/20 08:50 LP (Rec: 03/14/20 08:52 LP [id number]) Nutrition Notes Need for Assessment generated from: MD Order Initial or Follow up Brief Note Current Diagnosis Diabetes Other Pertinent Diagnosis DKA, N/V, Abdominal pain Current Diet NPO Labs/Tests K 3.2 BG 232 Pertinent Medications Insulin drip D51/2 NS with 20mEq Kcl at 125ml/hr NS at 150ml/hr Height 5 ft 9 in Weight 88.269 kg [place] Body Weight (kg) 65.90 BMI 28.7 Weight Status Overweight Subjective/Other Information Consult for diet education. Pt sleepy at time of visit. Nutrition Intervention Follow-Up By: 03/16/20 Additional Comments Follow for diet education
[2020-03-15] MEDS ORDERED: INSULIN NPH/REGULAR 70/30 INJ SUB-Q SCH (08:45)
[2020-03-15] MEDS ORDERED: SODIUM CHLORIDE 0.9% 1000 ML 1,000 ML IV SCH (09:00)
[2020-03-15] MEDS: INSULIN LISPRO 100 UNIT/ML VIAL 3 mL SUB-Q SCH ×4 (09:37→22:22)
[2020-03-15] MEDS: NICOTINE 14 MG/24 HR PATCH TD SCH (09:38)
--- NOTE | 2020-03-15 10:32 | Progress Note ---
Assessment and Plan Patient alert, awake. Patient resting on room air. O2 saturation 91%. No complaint of chest pain or shortness of breath or cough.Patient afebrile. No leukocytosis. Anion gap still high. Glucose 352. - Patient Problems (1) Diabetic ketoacidosis Current Visit: Yes Status: Acute Plan to address problem: Anion gap still high. Glucose 352. Management as per primary. Subjective Date of service: 03/15/20 Interval history: Patient alert, awake. Patient resting on room air. O2 saturation 91%. No complaint of chest pain or shortness of breath or cough.Patient afebrile. No leukocytosis. Anion gap still high. Glucose 352. Objective Vital Signs - 12hr 03/15/20 04:58 Temperature 98.0 F Pulse Rate 74 Respiratory 18 Rate Blood Pressure 92/36 O2 Sat by Pulse 91 Oximetry Constitutional: no acute distress, alert Eyes: non-icteric ENT: oropharynx moist Neck: supple, no lymphadenopathy Effort: normal Ascultation: Bilateral: clear Cardiovascular: regular rate and rhythm Gastrointestinal: normoactive bowel sounds, soft, non-tender Integumentary: normal Extremities: no cyanosis, no edema Neurologic: normal mental status, non-focal exam, pupils equal and round, CN II- XII normal Psychiatric: mood appropriate CBC and BMP: 03/15/20 05:52 03/15/20 05:52 ABG, PT/INR, D-dimer: PT/INR, D-dimer PT 13.1 Sec. (12.2-14.9) 03/15/20 05:52 INR 0.97 (0.87-1.13) 03/15/20 05:52 Abnormal lab findings: Abnormal Labs 03/13/20 03/13/20 03/13/20 17:09 17:09 17:09 RBC 5.89 H Hgb 15.8 H Hct 46.0 H MCV 78 L MCH 27 L MCHC 35 H RDW 12.9 L Lymph % (Auto) VBG pH Sodium 123 L Potassium Chloride 86.6 L Carbon Dioxide 20 L Creatinine Glucose 688 H* POC Glucose Calcium 10.9 H Alkaline Phosphatase 249 H Total Protein 8.4 H Lipase 83 H Ur Specific [place] 03/13/20 03/13/20 03/14/20 17:15 21:04 00:54 RBC Hgb Hct MCV MCH MCHC RDW Lymph % (Auto) VBG pH 7.300 L Sodium 127 L Potassium Chloride 90.3 L Carbon Dioxide Creatinine Glucose 461 H POC Glucose Calcium 10.9 H Alkaline Phosphatase Total Protein Lipase Ur Specific [place] 1.031 H 03/14/20 03/14/20 03/14/20 02:22 03:10 04:10 RBC Hgb Hct MCV MCH MCHC RDW Lymph % (Auto) VBG pH Sodium 136 L D Potassium 3.4 L Chloride Carbon Dioxide 21 L Creatinine Glucose 268 H POC Glucose 363 H 319 H Calcium Alkaline Phosphatase Total Protein Lipase Ur Specific [place] 03/14/20 03/14/20 03/14/20 04:28 05:25 05:48 RBC Hgb Hct MCV MCH MCHC RDW Lymph % (Auto) VBG pH Sodium Potassium 3.2 L Chloride Carbon Dioxide Creatinine Glucose 232 H POC Glucose 237 H 229 H Calcium Alkaline Phosphatase Total Protein Lipase Ur Specific [place] 03/14/20 03/14/20 03/14/20 06:12 06:28 07:04 RBC Hgb Hct MCV MCH MCHC RDW Lymph % (Auto) VBG pH Sodium 133 L Potassium 3.4 L Chloride Carbon Dioxide 20 L Creatinine 0.5 L Glucose 191 H POC Glucose 199 H 176 H Calcium Alkaline Phosphatase Total Protein Lipase Ur Specific [place] 03/14/20 03/14/20 03/14/20 08:17 09:43 12:00 RBC Hgb Hct MCV MCH MCHC RDW Lymph % (Auto) VBG pH Sodium Potassium Chloride Carbon Dioxide Creatinine Glucose POC Glucose 185 H 219 H 282 H Calcium Alkaline Phosphatase Total Protein Lipase Ur Specific [place] 03/14/20 03/14/20 03/14/20 13:24 17:30 18:41 RBC Hgb Hct MCV MCH MCHC RDW Lymph % (Auto) VBG pH Sodium 134 L 133 L Potassium Chloride Carbon Dioxide 21 L Creatinine Glucose 339 H 385 H POC Glucose 305 H Calcium Alkaline Phosphatase Total Protein Lipase Ur Specific [place] 03/14/20 03/15/20 03/15/20 23:18 00:49 05:25 RBC Hgb Hct MCV MCH MCHC RDW Lymph % (Auto) VBG pH Sodium 134 L Potassium Chloride Carbon Dioxide 21 L Creatinine Glucose 394 H POC Glucose 278 H 380 H Calcium Alkaline Phosphatase Total Protein Lipase Ur Specific [place] 03/15/20 03/15/20 03/15/20 05:52 05:52 08:19 RBC 5.08 H Hgb Hct MCV 77 L MCH 27 L MCHC 35 H RDW 13.1 L Lymph % (Auto) 41.0 H VBG pH Sodium 134 L Potassium Chloride Carbon Dioxide 21 L Creatinine Glucose 382 H POC Glucose 352 H Calcium Alkaline Phosphatase Total Protein Lipase Ur Specific [place]
[2020-03-15 15:52] LABS: ABG Base Excess -1.3 mmol/L (-2.0-3.0); ABG HCO3 21.7 mmol/L (20.0-26.0); ABG PCO2 31.6 mm Hg; ABG PH 7.455 pH Units (7.350-7.450)
[2020-03-15 16:18] LABS: Chol/HDL Ratio 9.93 %; HDL Cholesterol 30 mg/dL (40-59); LDL Cholesterol,Direct TNR mg/dL (50-130)
[2020-03-15] MEDS: INSULIN NPH/REGULAR 70/30 INJ SUB-Q SCH (18:04)
[2020-03-15] MEDS: ENOXAPARIN 40 MG/0.4 ML INJ SUB-Q SCH (21:40)
--- NOTE | 2020-03-15 23:47 | XRay Report ---
CHEST 2 VIEWS INDICATION / CLINICAL INFORMATION: Possible aspiration. COMPARISON: None available. FINDINGS: SUPPORT DEVICES: None. HEART / MEDIASTINUM: No significant abnormality. LUNGS / PLEURA: No significant pulmonary or pleural abnormality. .No pneumothorax. ADDITIONAL FINDINGS: No significant additional findings. IMPRESSION: 1. No acute findings. Signer Name: Aaron Edward MD Signed: 03/15/2020 11:42 PM Workstation Name: [id number]
[2020-03-16] MEDS: INSULIN LISPRO 100 UNIT/ML VIAL 3 mL SUB-Q SCH ×4 (07:30→22:19)
[2020-03-16] MEDS: INSULIN NPH/REGULAR 70/30 INJ SUB-Q SCH ×2 (07:30→17:50)
[2020-03-16] MEDS: NICOTINE 14 MG/24 HR PATCH TD SCH (09:00)
[2020-03-16 09:27] LABS: Blood Urea Nitrogen 10 mg/dL (7-17); Calcium 9.4 mg/dL (8.4-10.2); Hemolysis Index 6
[2020-03-16 09:39] LABS: BUN/Creatinine Ratio 17
--- NOTE | 2020-03-16 09:54 | Progress Note ---
Assessment and Plan Assessment and plan: --New onset type II diabetes mellitus; uncontrolled Blood sugars in high 200s , increase 70/30 Novolin to 34 units twice a day Patient presented with acute diabetic ketoacidosis Now on long-acting insulin Novolin 70/30 Increase 70/30 insulin to 30 units s/c twice a day Accu-Chek sliding scale coverage ADA diet Diabetic education diabetic diet education Check A1c 12.3 --Diabetic ketoacidosis; resolved Current Visit: Yes Status: Acute Plan to address problem: Patient was on on DKA pathway/insulin drip. Currently on long-acting insulin ADA diet --Vaginitis/probably Isidra 1 dose of Diflucan 150 mg oral Patient would see private [employer] upon discharge For further evaluation and management --Hypokalemia; resolved Current Visit: Yes Status: Acute . Plan to address problem: Closely monitor electrolytes --Hyponatremia; pseudohyponatremia due to hyperglycemia Current Visit: Yes Status: Acute . Plan to address problem: As the blood sugars improved sodium levels will improve Closely monitor electrolytes --Ongoing tobacco use; Current Visit: Yes Status: Acute. Plan to address problem: Smoking cessation counseling Nicotine patch as needed -- DVT prophylaxis Current Visit: Yes Status: Acute Plan to address problem: Patient placed on subcutaneous Lovenox. -- Full code status Current Visit: Yes Status: Acute We will closely monitor the patient and adjust management as needed Plan of care reviewed with the patient and her nurse DC planning per case management History Interval history: Seen and examined the patient at the bedside this morning Patient's chart medications , tests and reports reviewed patient is complaining of some vaginal itching, no discharge Patient's blood sugars remain uncontrolled We will adjust long-acting insulin Patient alert and awake not in acute distress Vital signs noted Hospitalist Physical - Constitutional Vitals: Temp Pulse Resp BP Pulse Ox 98.2 F 57 L 18 100/55 93 03/16/20 06:12 03/16/20 06:12 03/16/20 06:12 03/16/20 06:12 03/16/20 06:12 General appearance: Present: no acute distress, well-nourished - EENT Eyes: Present: PERRL, EOM intact - Neck Neck: Present: supple, normal ROM - Respiratory Respiratory effort: normal Respiratory: bilateral: diminished, negative: rales, rhonchi, wheezing - Cardiovascular Rhythm: regular Heart Sounds: Present: S1 & S2 - Extremities Extremities: no ischemia, No edema - Abdominal General gastrointestinal: soft, non-tender, non-distended, normal bowel sounds - Integumentary Integumentary: Present: clear, warm - Psychiatric Psychiatric: appropriate mood/affect, cooperative - Neurologic Neurologic: moves all extremities Results - Labs CBC & Chem 7: 03/15/20 05:52 03/16/20 08:13 Labs: Laboratory Last Values WBC 9.5 K/mm3 (4.5-11.0) 03/15/20 05:52 RBC 5.08 M/mm3 (3.65-5.03) H 03/15/20 05:52 Hgb 13.7 gm/dl (10.1-14.3) 03/15/20 05:52 Hct 39.2 % (30.3-42.9) D 03/15/20 05:52 MCV 77 fl (79-97) L 03/15/20 05:52 MCH 27 pg (28-32) L 03/15/20 05:52 MCHC 35 % (30-34) H 03/15/20 05:52 RDW 13.1 % (13.2-15.2) L 03/15/20 05:52 Plt Count 219 K/mm3 (140-440) 03/15/20 05:52 Lymph % (Auto) 41.0 % (13.4-35.0) H 03/15/20 05:52 [place] % (Auto) 5.5 % (0.0-7.3) 03/15/20 05:52 Eos % (Auto) 0.4 % (0.0-4.3) 03/15/20 05:52 Baso % (Auto) 0.8 % (0.0-1.8) 03/15/20 05:52 Lymph # (Auto) 3.9 K/mm3 (1.2-5.4) 03/15/20 05:52 [place] # (Auto) 0.5 K/mm3 (0.0-0.8) 03/15/20 05:52 Eos # (Auto) 0.0 K/mm3 (0.0-0.4) 03/15/20 05:52 Baso # (Auto) 0.1 K/mm3 (0.0-0.1) 03/15/20 05:52 Seg Neutrophils % 52.3 % (40.0-70.0) 03/15/20 05:52 Seg Neutrophils # 5.0 K/mm3 (1.8-7.7) 03/15/20 05:52 PT 13.1 Sec. (12.2-14.9) 03/15/20 05:52 INR 0.97 (0.87-1.13) 03/15/20 05:52 ABG pH 7.455 pH Units (7.350-7.450) H 03/15/20 15:30 ABG pCO2 31.6 mm Hg 03/15/20 15:30 ABG pO2 85.0 mm Hg (80.0-90.0) 03/15/20 15:30 ABG HCO3 21.7 mmol/L (20.0-26.0) 03/15/20 15:30 ABG O2 Saturation 97.0 % (95.0-99.0) 03/15/20 15:30 ABG O2 Content 18.2 (0.0-44) 03/15/20 15:30 ABG Base Excess -1.3 mmol/L (-2.0-3.0) 03/15/20 15:30 ABG Hemoglobin 13.6 gm/dl (12.0-16.0) 03/15/20 15:30 ABG Carboxyhemoglobin 1.3 % (0.0-5.0) 03/15/20 15:30 ABG Methemoglobin 1.0 % (0.0-1.5) 03/15/20 15:30 VBG pH 7.300 (7.320-7.420) L 03/13/20 21:04 Oxyhemoglobin 94.8 % (95.0-99.0) L 03/15/20 15:30 FiO2 21 % 03/15/20 15:30 Sodium 137 mmol/L (137-145) 03/16/20 08:13 Potassium 3.9 mmol/L (3.6-5.0) 03/16/20 08:13 Chloride 103.6 mmol/L (98-107) 03/16/20 08:13 Carbon Dioxide 21 mmol/L (22-30) L 03/16/20 08:13 Anion Gap 16 mmol/L 03/16/20 08:13 BUN 10 mg/dL (7-17) 03/16/20 08:13 Creatinine 0.6 mg/dL (0.6-1.2) 03/16/20 08:13 Estimated GFR > 60 ml/min 03/16/20 08:13 BUN/Creatinine Ratio 17 % 03/16/20 08:13 Glucose 288 mg/dL (65-100) H 03/16/20 08:13 POC Glucose 271 mg/dL (70-105) H 03/16/20 08:18 Hemoglobin A1c 12.3 % (4-6) H 03/14/20 13:24 Calcium 9.4 mg/dL (8.4-10.2) 03/16/20 08:13 Phosphorus 3.40 mg/dL (2.5-4.5) 03/16/20 08:13 Magnesium 1.70 mg/dL (1.7-2.3) 03/16/20 08:13 Total Bilirubin 0.50 mg/dL (0.1-1.2) 03/13/20 17:09 AST 19 units/L (5-40) 03/13/20 17:09 ALT 21 units/L (7-56) 03/13/20 17:09 Alkaline Phosphatase 249 units/L (35-129) H 03/13/20 17:09 Total Protein 8.4 g/dL (6.3-8.2) H 03/13/20 17:09 Albumin 4.5 g/dL (3.9-5) 03/13/20 17:09 Albumin/Globulin Ratio 1.2 % 03/13/20 17:09 Triglycerides 634 mg/dL (2-149) H 03/14/20 00:54 Cholesterol 298 mg/dL (50-199) H 03/14/20 00:54 LDL Cholesterol Direct TNR 03/14/20 00:54 HDL Cholesterol 30 mg/dL (40-59) L 03/14/20 00:54 Cholesterol/HDL Ratio 9.93 % 03/14/20 00:54 Lipase 83 units/L (13-60) H 03/13/20 17:09 Urine Color Straw (Yellow) 03/13/20 17:15 Urine Turbidity Clear (Clear) 03/13/20 17:15 Urine pH 6.0 (5.0-7.0) 03/13/20 17:15 Ur Specific [place] 1.031 (1.003-1.030) H 03/13/20 17:15 Urine Protein <15 mg/dl mg/dL (Negative) 03/13/20 17:15 Urine Glucose (UA) >=500 mg/dL (Negative) 03/13/20 17:15 Urine Ketones Tr mg/dL (Negative) 03/13/20 17:15 Urine Blood Sm (Negative) 03/13/20 17:15 Urine Nitrite Neg (Negative) 03/13/20 17:15 Urine Bilirubin Neg (Negative) 03/13/20 17:15 Urine Urobilinogen < 2.0 mg/dL (<2.0) 03/13/20 17:15 Ur Leukocyte Esterase Mod (Negative) 03/13/20 17:15 Urine WBC (Auto) 4.0 /HPF (0.0-6.0) 03/13/20 17:15 Urine RBC (Auto) 6.0 /HPF (0.0-6.0) 03/13/20 17:15 U Epithel Cells (Auto) 3.0 /HPF (0-13.0) 03/13/20 17:15 Urine Bacteria (Auto) 1+ /HPF (Negative) 03/13/20 17:15 Urine Mucus Few /HPF 03/13/20 17:15 Grimaldo/IV: Voiding Method Toilet IV Catheter Type [Right Hand] Peripheral IV IV Catheter Type [Left Hand] INT / Saline Lock Active Medications - Current Medications Current Medications: Generic Name Dose Route Start Last Admin Trade Name Freq PRN Reason Stop Dose Admin Acetaminophen 650 mg 03/14/20 09:28 03/14/20 09:39 Tylenol PO 650 mg Q4H PRN Administration Pain, Mild (1-3) Dextrose 0 ml 03/14/20 00:37 D50w (25gm) Syringe IV Q30MIN PRN Hypoglycemia Protocol Enoxaparin Sodium 40 mg 03/14/20 22:00 03/15/20 21:40 Enoxaparin SUB-Q 40 mg QDAY@2200 LUIS ENRIQUE Administration Protocol Sodium Chloride 1,000 mls @ 100 mls/hr 03/15/20 09:00 03/16/20 09:03 Nacl 0.9% 1000 Ml IV 100 mls/hr DIRECT LUIS ENRIQUE Administration Insulin Human Isoph/Insulin Regular 30 unit 03/15/20 17:30 03/16/20 07:30 Humulin 70/30 SUB-Q 30 unit BIDDIAB LUIS ENRIQUE Administration Insulin Human Lispro 0 unit 03/14/20 11:30 03/16/20 07:30 Humalog SUB-Q 4 unit ACHS LUIS ENRIQUE Administration Protocol Morphine Sulfate 2 mg 03/14/20 00:37 Morphine IV Q4H PRN Pain, Moderate (4-6) Nicotine 14 mg 03/14/20 10:00 03/16/20 09:00 Habitrol TD 14 mg QDAY LUIS ENRIQUE Administration Sodium Chloride 10 ml 03/14/20 10:00 03/16/20 09:01 Sodium Chloride Flush Syringe 10 Ml IV 10 ml BID LUIS ENRIQUE Administration Sodium Chloride 10 ml 03/14/20 00:37 Sodium Chloride Flush Syringe 10 Ml IV PRN PRN LINE FLUSH Nutrition/Malnutrition Assess - Dietary Evaluation Nutrition/Malnutrition Findings: Nutrition Notes Start: 03/14/20 08:50 Freq: Status: Active Protocol: Document 03/14/20 08:50 LP (Rec: 03/14/20 08:52 LP [id number]) Nutrition Notes Need for Assessment generated from: MD Order Initial or Follow up Brief Note Current Diagnosis Diabetes Other Pertinent Diagnosis DKA, N/V, Abdominal pain Current Diet NPO Labs/Tests K 3.2 BG 232 Pertinent Medications Insulin drip D51/2 NS with 20mEq Kcl at 125ml/hr NS at 150ml/hr Height 5 ft 9 in Weight 88.269 kg [place] Body Weight (kg) 65.90 BMI 28.7 Weight Status Overweight Subjective/Other Information Consult for diet education. Pt sleepy at time of visit. Nutrition Intervention Follow-Up By: 03/16/20 Additional Comments Follow for diet education
[2020-03-16] MEDS ORDERED: FLUCONAZOLE 100 MG TAB PO NR (11:22)
--- NOTE | 2020-03-16 14:14 | Progress Note ---
Assessment and Plan Patient alert, awake. Patient resting on room air. O2 saturation 93%. No complaint of chest pain or shortness of breath or cough.Patient afebrile. No leukocytosis. Anion gap 16. Glucose 271. Chest xray done 03/15/20 Reported no acute findings. ABG on room air. ABG pH 7.455 pH Units (7.350-7.450) H 03/15/20 15:30 ABG pCO2 31.6 mm Hg 03/15/20 15:30 ABG pO2 85.0 mm Hg (80.0-90.0) 03/15/20 15:30 ABG O2 Saturation 97.0 % (95.0-99.0) 03/15/20 15:30 - Patient Problems (1) Diabetic ketoacidosis Current Visit: Yes Status: Acute Plan to address problem: Anion gap is 16. Glucose 271 . Management as per primary. Subjective Date of service: 03/16/20 Interval history: Patient alert, awake. Patient resting on room air. O2 saturation 93%. No complaint of chest pain or shortness of breath or cough.Patient afebrile. No leukocytosis. Anion gap 16. Glucose 271. Chest xray done 03/15/20 reported No acute findings. ABG on room air. ABG pH 7.455 pH Units (7.350-7.450) H 03/15/20 15:30 ABG pCO2 31.6 mm Hg 03/15/20 15:30 ABG pO2 85.0 mm Hg (80.0-90.0) 03/15/20 15:30 ABG O2 Saturation 97.0 % (95.0-99.0) 03/15/20 15:30 Objective Vital Signs - 12hr 03/16/20 06:12 Temperature 98.2 F Pulse Rate 57 L Respiratory 18 Rate Blood Pressure 100/55 O2 Sat by Pulse 93 Oximetry Constitutional: no acute distress, alert Eyes: non-icteric ENT: oropharynx moist Neck: supple, no lymphadenopathy Effort: normal Ascultation: Bilateral: clear Cardiovascular: regular rate and rhythm Gastrointestinal: normoactive bowel sounds, soft, non-tender Integumentary: normal Extremities: no cyanosis, no edema Neurologic: normal mental status, non-focal exam, pupils equal and round, CN II- XII normal Psychiatric: mood appropriate CBC and BMP: 03/15/20 05:52 03/16/20 08:13 ABG, PT/INR, D-dimer: ABG ABG pH 7.455 pH Units (7.350-7.450) H 03/15/20 15:30 ABG pCO2 31.6 mm Hg 03/15/20 15:30 ABG pO2 85.0 mm Hg (80.0-90.0) 03/15/20 15:30 ABG O2 Saturation 97.0 % (95.0-99.0) 03/15/20 15:30 PT/INR, D-dimer PT 13.1 Sec. (12.2-14.9) 03/15/20 05:52 INR 0.97 (0.87-1.13) 03/15/20 05:52 Abnormal lab findings: Abnormal Labs 03/13/20 03/13/20 03/13/20 17:09 17:09 17:09 RBC 5.89 H Hgb 15.8 H Hct 46.0 H MCV 78 L MCH 27 L MCHC 35 H RDW 12.9 L Lymph % (Auto) ABG pH VBG pH Oxyhemoglobin Sodium 123 L Potassium Chloride 86.6 L Carbon Dioxide 20 L Creatinine Glucose 688 H* POC Glucose Hemoglobin A1c Calcium 10.9 H Alkaline Phosphatase 249 H Total Protein 8.4 H Triglycerides Cholesterol HDL Cholesterol Lipase 83 H Ur Specific [place] 03/13/20 03/13/20 03/14/20 17:15 21:04 00:54 RBC Hgb Hct MCV MCH MCHC RDW Lymph % (Auto) ABG pH VBG pH 7.300 L Oxyhemoglobin Sodium Potassium Chloride Carbon Dioxide Creatinine Glucose POC Glucose Hemoglobin A1c Calcium Alkaline Phosphatase Total Protein Triglycerides 634 H Cholesterol 298 H HDL Cholesterol 30 L Lipase Ur Specific [place] 1.031 H 03/14/20 03/14/20 03/14/20 00:54 02:22 03:10 RBC Hgb Hct MCV MCH MCHC RDW Lymph % (Auto) ABG pH VBG pH Oxyhemoglobin Sodium 127 L Potassium Chloride 90.3 L Carbon Dioxide Creatinine Glucose 461 H POC Glucose 363 H 319 H Hemoglobin A1c Calcium 10.9 H Alkaline Phosphatase Total Protein Triglycerides Cholesterol HDL Cholesterol Lipase Ur Specific [place] 03/14/20 03/14/20 03/14/20 04:10 04:28 05:25 RBC Hgb Hct MCV MCH MCHC RDW Lymph % (Auto) ABG pH VBG pH Oxyhemoglobin Sodium 136 L D Potassium 3.4 L Chloride Carbon Dioxide 21 L Creatinine Glucose 268 H POC Glucose 237 H 229 H Hemoglobin A1c Calcium Alkaline Phosphatase Total Protein Triglycerides Cholesterol HDL Cholesterol Lipase Ur Specific [place] 03/14/20 03/14/20 03/14/20 05:48 06:12 06:28 RBC Hgb Hct MCV MCH MCHC RDW Lymph % (Auto) ABG pH VBG pH Oxyhemoglobin Sodium 133 L Potassium 3.2 L 3.4 L Chloride Carbon Dioxide 20 L Creatinine 0.5 L Glucose 232 H 191 H POC Glucose 199 H Hemoglobin A1c Calcium Alkaline Phosphatase Total Protein Triglycerides Cholesterol HDL Cholesterol Lipase Ur Specific [place] 03/14/20 03/14/20 03/14/20 07:04 08:17 09:43 RBC Hgb Hct MCV MCH MCHC RDW Lymph % (Auto) ABG pH VBG pH Oxyhemoglobin Sodium Potassium Chloride Carbon Dioxide Creatinine Glucose POC Glucose 176 H 185 H 219 H Hemoglobin A1c Calcium Alkaline Phosphatase Total Protein Triglycerides Cholesterol HDL Cholesterol Lipase Ur Specific [place] 03/14/20 03/14/20 03/14/20 12:00 13:24 13:24 RBC Hgb Hct MCV MCH MCHC RDW Lymph % (Auto) ABG pH VBG pH Oxyhemoglobin Sodium 134 L Potassium Chloride Carbon Dioxide 21 L Creatinine Glucose 339 H POC Glucose 282 H Hemoglobin A1c 12.3 H Calcium Alkaline Phosphatase Total Protein Triglycerides Cholesterol HDL Cholesterol Lipase Ur Specific [place] 03/14/20 03/14/20 03/14/20 17:30 18:41 23:18 RBC Hgb Hct MCV MCH MCHC RDW Lymph % (Auto) ABG pH VBG pH Oxyhemoglobin Sodium 133 L Potassium Chloride Carbon Dioxide Creatinine Glucose 385 H POC Glucose 305 H 278 H Hemoglobin A1c Calcium Alkaline Phosphatase Total Protein Triglycerides Cholesterol HDL Cholesterol Lipase Ur Specific [place] 03/15/20 03/15/20 03/15/20 00:49 05:25 05:52 RBC 5.08 H Hgb Hct MCV 77 L MCH 27 L MCHC 35 H RDW 13.1 L Lymph % (Auto) 41.0 H ABG pH VBG pH Oxyhemoglobin Sodium 134 L Potassium Chloride Carbon Dioxide 21 L Creatinine Glucose 394 H POC Glucose 380 H Hemoglobin A1c Calcium Alkaline Phosphatase Total Protein Triglycerides Cholesterol HDL Cholesterol Lipase Ur Specific [place] 03/15/20 03/15/2020 05:52 08:19 11:32 RBC Hgb Hct MCV MCH MCHC RDW Lymph % (Auto) ABG pH VBG pH Oxyhemoglobin Sodium 134 L Potassium Chloride Carbon Dioxide 21 L Creatinine Glucose 382 H POC Glucose 352 H 395 H Hemoglobin A1c Calcium Alkaline Phosphatase Total Protein Triglycerides Cholesterol HDL Cholesterol Lipase Ur Specific [place] 03/15/20 03/15/20 03/15/20 15:30 18:19 21:46 RBC Hgb Hct MCV MCH MCHC RDW Lymph % (Auto) ABG pH 7.455 H VBG pH Oxyhemoglobin 94.8 L Sodium Potassium Chloride Carbon Dioxide Creatinine Glucose POC Glucose 327 H 251 H Hemoglobin A1c Calcium Alkaline Phosphatase Total Protein Triglycerides Cholesterol HDL Cholesterol Lipase Ur Specific [place] 03/16/20 03/16/20 08:13 08:18 RBC Hgb Hct MCV MCH MCHC RDW Lymph % (Auto) ABG pH VBG pH Oxyhemoglobin Sodium Potassium Chloride Carbon Dioxide 21 L Creatinine Glucose 288 H POC Glucose 271 H Hemoglobin A1c Calcium Alkaline Phosphatase Total Protein Triglycerides Cholesterol HDL Cholesterol Lipase Ur Specific [place] Chest x-ray: report reviewed, image reviewed Additional Studies: CHEST 2 VIEWS 03/15/20 INDICATION / CLINICAL INFORMATION: Possible aspiration. COMPARISON: None available. FINDINGS: SUPPORT DEVICES: None. HEART / MEDIASTINUM: No significant abnormality. LUNGS / PLEURA: No significant pulmonary or pleural abnormality. .No pneumothorax. ADDITIONAL FINDINGS: No significant additional findings. IMPRESSION: 1. No acute findings.
[2020-03-16] MEDS: ENOXAPARIN 40 MG/0.4 ML INJ SUB-Q SCH (22:19)
[2020-03-17] MEDS: INSULIN LISPRO 100 UNIT/ML VIAL 3 mL SUB-Q SCH ×3 (07:30→16:30)
[2020-03-17] MEDS: INSULIN NPH/REGULAR 70/30 INJ SUB-Q SCH ×2 (08:42→16:53)
[2020-03-17] MEDS: NICOTINE 14 MG/24 HR PATCH TD SCH (09:55)
--- NOTE | 2020-03-17 14:55 | Discharge Summary ---
Providers - Providers Date of Admission: 03/14/20 11:43 Date of discharge: 03/17/20 Attending physician: CARLOS MARIA 03/14/20 00:38 Consult to Dietitian/Nutrition [CONS] Routine Physician Instructions: Reason For Exam: Reason for Consult: Diet education Consult to Dietitian/Nutrition [CONS] Routine Physician Instructions: Reason For Exam: DKA Reason for Consult: Nutrition Recommendations Reason for Consult: Diet education Consult to Physician [CONS] Routine Comment: doctor denise seen the patient/ jose Consulting Provider: DAIANA KRAMER Physician Instructions: Reason For Exam: DKA, NEW ONSET D/MELLITUS Primary care physician: [employer] Hospitalization Condition: Stable Disposition: DC-01 TO HOME OR SELFCARE Time spent for discharge: 32 min Core Measure Documentation - Palliative Care Palliative Care/ Comfort Measures: Not Applicable - Core Measures Any of the following diagnoses?: none Exam - Constitutional Vitals: Temp Pulse Resp BP Pulse Ox 98.2 F 83 22 103/41 95 03/17/20 11:05 03/17/20 11:05 03/17/20 11:05 03/17/20 11:05 03/17/20 11:05 General appearance: Present: no acute distress, well-nourished - EENT Eyes: Present: PERRL, EOM intact - Neck Neck: Present: supple, normal ROM - Respiratory Respiratory effort: normal Respiratory: bilateral: diminished, negative: rales, rhonchi, wheezing - Cardiovascular Rhythm: regular Heart Sounds: Present: S1 & S2 - Extremities Extremities: no ischemia, No edema - Abdominal General gastrointestinal: Present: soft, non-tender, non-distended, normal bowel sounds - Integumentary Integumentary: Present: clear, warm - Musculoskeletal Musculoskeletal: strength equal bilaterally, generalized weakness - Psychiatric Psychiatric: appropriate mood/affect, cooperative - Neurologic Neurologic: moves all extremities Plan Activity: advance as tolerated Diet: diabetic Additional Instructions: Follow-up primary care physician 3 to 5 days. 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
[2020-03-17 19:04] VITALS: BP 117/53
== END 2020-03-17 18:50 | disposition home or self-care (01) | DRG 638 ==
LOC: ED 16:41 → CC1 03-14 00:37 → OBSVTOIN 03-14 11:43 → 3A 03-14 18:19
PROVIDERS: ADMIT Internal Medicine Geriatric Medicine; ATTEND Internal Medicine
PROC: 4A033R1 Measurement of Arterial Saturation, Peripheral, Percutaneous Approach (ICD-10-PCS; principal; 2020-03-15)
DX: E11.10 Type 2 diabetes mellitus with ketoacidosis without coma (principal); E87.1 Hypo-osmolality and hyponatremia; E87.6 Hypokalemia; N76.0 Acute vaginitis
CPT/HCPCS: 36415; 36600; 71046; 74176; 80048; 80053; 80061; 81001; 82803; 82805; 82962; 83036; 83690; 83735; 84100; 85025; 85610; 96374; 96375; G0378; C9113; J1650; J1815; J2405; J7030